=== PATIENT | male | born 1970 | race Caucasian/White ===

== ENCOUNTER 2017-05-07 19:22 | Outpatient (CLI) | payer OTHER | END 2017-05-07 19:23 | disposition short-term general hospital (02) | LOC: EMS 19:22 | PROVIDERS: ATTEND Surgery | DX: S89.91XA Unspecified injury of right lower leg, initial encounter (principal); S09.90XA Unspecified injury of head, initial encounter; S69.92XA Unspecified injury of left wrist, hand and finger(s), initial encounter; S69.91XA Unspecified injury of right wrist, hand and finger(s), initial encounter; V29.40XA Motorcycle driver injured in collision with unspecified motor vehicles in traffic accident, initial encounter; Y92.413 State road as the place of occurrence of the external cause | CPT/HCPCS: A0425; A0427 ==

== ENCOUNTER 2021-12-17 17:04 | Emergency (ER) | payer MEDICAID, OTHER ==
--- NOTE | 2021-12-17 17:36 | ED Physician Documentation ---
PD HPI LOWER EXT INJURY - Stated complaint Stated Complaint: L FOOT PX/INJ - Chief complaint Chief Complaint: Ext Problem - History obtained from History obtained from: Patient - History of Present Illness PD HPI LOW EXT INJURY LOCATION: Left, Foot Type of injury: Puncture wound (stepped on nail 8 days ago with swelling and redness starting next day. REdness has stayed stagnant until yesterday when started to increase and the foot become more tender. HAd seen [employer] for it and was getting natural treatments, but then started on AUgmentin yesterday when got more red.) Where injury occurred: Home Timing - onset: How many days ago (8) Timing - duration: Days (8) Timing - details: Gradual onset, Still present (red after the injury next day but staying mild with soaks and topical treatment until worse the past 2 days, despite starting Augmentin yesterday. Area with swelling and white lump developing.) Worsened by: Palpating, Other (walking on it) Associated symptoms: Swelling, Discolored. No: Weakness, Numbness Similar symptoms before: Has not had sx before Review of Systems Constitutional: denies: Fever, Chills Neurologic: denies: Focal weakness, Numbness PD PAST MEDICAL HISTORY - Past Medical History Cardiovascular: High cholesterol Endocrine/Autoimmune: Type 1 diabetes - Present Medications Home Medications: Ambulatory Orders Medication Instructions Recorded Confirmed Insulin Glargine [Lantus Solostar] 12 - 14 unit SUBQ BID 12/06/15 12/06/15 Insulin Lispro [Humalog Kwikpen 15 - 20 unit SQ TIDWM 12/06/15 12/06/15 U-100] Lovastatin 40 mg PO QPM 12/06/15 12/06/15 lisinopriL [Lisinopril] 5 mg PO DAILY 12/06/15 12/06/15 Doxycycline Hyclate 100 mg PO BID 7 Days #14 cap 12/17/21 HYDROcod/ACETAM 5/325 [Dunn 5/325] 1 ea PO Q6H PRN #14 tablet 12/17/21 Ondansetron Odt [Zofran] 4 mg TL Q6H PRN #15 tablet 12/17/21 - Allergies Allergies/Adverse Reactions: Allergies Allergy/AdvReac Type Severity Reaction Status Date / Time morphine AdvReac Nausea Verified 12/17/21 17:15 PD ED PE NORMAL - Vitals Vital signs reviewed: Yes - General General: Alert and oriented X 3, No acute distress, Well developed/nourished - Derm Derm: Normal color, Warm and dry - Extremities Extremities: Other (left plantar foot near 5th MT head with rounded area of swelling, with whitish coloring under the skin, tender with redness around. There is redness dorsal foot about 4 cm diameter area. Tender on plantar to mid foot/arch, without redness there. ) Results - Vitals Vitals: Vital Signs - 24 hr 12/17/21 12/17/21 12/17/21 17:16 19:13 19:14 Temperature 36.3 C L 36.4 C L 36.4 C L Heart Rate 99 81 81 Respiratory 16 16 16 Rate Blood Pressure 125/71 146/72 H 146/72 H O2 Saturation 96 97 97 Oxygen O2 Source Room air - Labs Labs: Microbiology 12/17/21 18:40 Wound Culture - Preliminary Foot - Left - Rads (name of study) foot xray Radiology: Prelim report reviewed (no radiopaque FB.), EMP read contemporaneously (no FB, air, fracture.), See rad report Procedures - Abscess I&D (location) left plantar Preparation: Marcaine 0.5% Incision: Incised with scalpel, Purulent drainage (2-3 good drops of pus out, cultured.), Irrigated, Culture obtained Other: Pt tolerated well, Antibiotic prescribed PD MEDICAL DECISION MAKING - ED course Complexity details: considered differential (foot infection after puncture wound, with now seems early developing abscess. Will I&D the area. Add Staph coverage for abx. Short term pain meds for pain control. ), d/w patient Departure - Departure Disposition: 01 Home, Self Care Clinical Impression: Wound infection Puncture wound of plantar aspect of foot Qualifiers: Encounter type: initial encounter Laterality: left Qualified Code(s): S91.332A - Puncture wound without foreign body, left foot, initial encounter Condition: Stable Record reviewed to determine appropriate education?: Yes Instructions: ED Wound Puncture Foot Prescriptions: Doxycycline Hyclate 100 mg PO BID 7 Days #14 cap HYDROcod/ACETAM 5/325 [Dunn 5/325] 1 ea PO Q6H PRN #14 tablet PRN Reason: Pain Ondansetron Odt [Zofran] 4 mg TL Q6H PRN #15 tablet PRN Reason: Nausea / Vomiting Comments: I did leland open the wound on your foot and got several drops of pus out. Hopefully this will promote better drainage as you soak it in warm water as you have been doing. Commonly just allowing the infection out will help resolve it quite a bit. However we would be worried about an infection in the foot for you and I would suggest adding doxycycline antibiotic for staph coverage. Use Tylenol or ibuprofen as needed for pains. I prescribed stronger pain medicine hydrocodone to use every 6 hours if needed for worse pain in the short-term. I also prescribed O dancer Moustapha to use for nausea in case to get that from the medicines. Continue soaking in water few times a day. Bandage over the wound and hopefully will drain still over the next day or 2. I would anticipate improvement over the next couple of days. We did do a culture off the drainage and that should result in a couple of days to identify the bacteria/infection better. We will call you if we need to change antibiotics. I transmitted your prescriptions to [facility] in [place]. I am prescribing a short course of narcotic pain medication for you. These are potentially dangerous and addictive medications that should be used carefully. These medications may constipate you. Take an [id number] stool softener such as docusate twice daily with plenty of water while taking these medications. If you go 24 hours without a bowel movement, take [id number] MiraLAX, per package instructions. Do not drink or drive while taking these medications. If you received narcotic or sedating medications while in the emergency de partment do not drive for 24 hours. Store this medication in a safe, secure place and out of reach of children. It is a violation of federal law to give or sell this medication to another person or to use in a manner other than prescribed. The ED will not refill narcotic prescriptions, including prescriptions lost or stolen. You can dispose of unwanted medications at the [facility] office or at several pharmacies such as [facility]. Discharge Date/Time: 12/17/21 19:15
[2021-12-17] MEDS ORDERED: oxyCODONE 5 MG TABLET PO STA (18:01)
[2021-12-17] MEDS ORDERED: ACETAMINOPHEN 325 MG TABLET PO STA (18:01)
[2021-12-17] MEDS ORDERED: ONDANSETRON ODT 4 MG TABLET TL STA (18:01)
[2021-12-17] MEDS ORDERED: DOXYCYCLINE 100 MG TABLET PO STA (18:44)
--- NOTE | 2021-12-17 18:44 | XRAY Report ---
PROCEDURE: Foot 3 View LT INDICATIONS: stepped on nail; eval for FB/fx TECHNIQUE: 3 views of the foot were acquired. COMPARISON: None FINDINGS: Bones: No fractures or dislocations. No suspicious bony lesions. Soft tissues: No tibiotalar joint effusion. Achilles tendon appears normal. Multiple small vessel calcifications are consistent with likely diabetes. No radiopaque foreign body. IMPRESSION: No evidence radiopaque foreign body. Reviewed by: Randal Gomez MD on 12/17/2021 6:43 PM PDT Approved by: Randal Gomez MD on 12/17/2021 6:43 PM PDT Station ID: [id number]
[2021-12-17 19:14] VITALS: BP 146/72
== END 2021-12-17 19:15 | disposition home or self-care (01) ==
LOC: ED 17:04
DX: S91.332A Puncture wound without foreign body, left foot, initial encounter (principal); W45.0XXA Nail entering through skin, initial encounter; E10.9 Type 1 diabetes mellitus without complications; Z79.4 Long term (current) use of insulin
CPT/HCPCS: 10060; 73630; 87070; 87205; 99283; A9270; Q0162

== ENCOUNTER 2022-10-21 07:59 | Outpatient (CLI) | payer MEDICAID ==
[2022-10-21 14:53] LABS: BASOPHILS # (AUTO) 0.1 10^3/uL (0.0-0.1); BASOPHILS % (AUTO) 2.6 %; EOSINOPHILS # (AUTO) 0.3 10^3/uL (0.0-0.7); EOSINOPHILS % (AUTO) 6.8 %; HGB - HEMOGLOBIN 15.1 g/dL (14.0-18.0); LYMPHOCYTES # (AUTO) 1.5 10^3/uL (1.5-3.5); LYMPHOCYTES % (AUTO) 29.8 %; MEAN CORPUSCULAR HEMOGLOBIN 31.8 pg (27.0-31.0); MEAN CORPUSCULAR HGB CONC 32.8 g/dL (32.0-36.0); MEAN CORPUSCULAR VOLUME 96.8 fL (80.0-94.0); MEAN PLATELET VOLUME 10.2 fL (7.4-11.4); MONOCYTES # (AUTO) 0.3 10^3/uL (0.0-1.0); MONOCYTES % (AUTO) 5.8 %; NEUTROPHILS # (AUTO) 2.8 10^3/uL (1.5-6.6); NEUTROPHILS % (AUTO) 54.8 %; PLT - PLATELET COUNT 334 10^3/uL (130-450); RED BLOOD COUNT 4.75 10^6/uL (4.70-6.10); RED CELL DISTRIBUTION WIDTH 12.3 % (12.0-15.0)
[2022-10-21 15:23] LABS: ALBUMIN 4.1 g/dL (3.2-5.5); ALBUMIN/GLOBULIN RATIO 1.2 (1.0-2.2); ALKALINE PHOSPHATASE 131 IU/L (42-121); ALT ALANINE AMINOTRANSFERASE 29 IU/L (10-60); AST ASPARTATE AMINOTRANSFERASE 23 IU/L (10-42); BILIRUBIN,TOTAL 0.7 mg/dL (0.2-1.0); BUN - BLOOD UREA NITROGEN 12 mg/dL (6-20); CALCIUM 9.9 mg/dL (8.5-10.3); CARBON DIOXIDE - CO2 31 mmol/L (21-32); CHLORIDE 101 mmol/L (101-111); CHOL/HDL RATIO 2.9 (<5.0); CHOLESTEROL 263 mg/dL; CREATININE 0.7 mg/dL (0.6-1.2); GFR - MDRD 119 (>89); GLUCOSE 154 mg/dL (70-100); HDL CHOLESTEROL 90 mg/dL; LDL CHOLESTEROL,CALCULATED 148 mg/dL; LDL/HDL RATIO 1.6 (<3.6); POTASSIUM 4.4 mmol/L (3.5-5.0); SODIUM 142 mmol/L (135-145); TOTAL PROTEIN 7.4 g/dL (6.7-8.2); TRIGLYCERIDES 123 mg/dL; VLDL CHOLESTEROL 25 mg/dL
[2022-10-21 15:37] LABS: CRP - C-REACTIVE PROTEIN < 1.0 mg/dL (0-1.0)
[2022-10-21 15:52] LABS: THYROID STIMULATING HORMONE 2.77 uIU/mL (0.34-5.60)
[2022-10-21 15:56] LABS: CREATININE,URINE 127.2 mg/dL; MICROALBUM/CREATININE RATIO,UR 27.5 ug/mg (<30.0); MICROALBUMIN,URINE 3.5 mg/dL (0-300.0)
[2022-10-21 20:56] LABS: ESTIMATED AVERAGE GLUCOSE 258 mg/dL (70-100); HEMOGLOBIN A1c% 10.6 % (4.27-6.07)
== END 2022-10-21 12:59 | disposition home or self-care (01) ==
LOC: LAB.S 07:59
PROVIDERS: ATTEND Internal Medicine
DX: E10.9 Type 1 diabetes mellitus without complications (principal); K90.49 Malabsorption due to intolerance, not elsewhere classified; S06.2X Diffuse traumatic brain injury
CPT/HCPCS: 36415; 80053; 80061; 82043; 82570; 82607; 83036; 83721; 84443; 85025; 85651; 86140

== ENCOUNTER 2023-06-08 08:20 | Outpatient (CLI) | payer MEDICAID ==
[2023-06-08 15:15] LABS: ALBUMIN 4.3 g/dL (3.2-5.5); ALBUMIN/GLOBULIN RATIO 1.7 (1.0-2.2); BILIRUBIN,TOTAL 0.6 mg/dL (0.2-1.0); CALCIUM 9.4 mg/dL (8.5-10.3); CREATININE 0.8 mg/dL (0.6-1.3); POTASSIUM 4.1 mmol/L (3.5-4.5); TOTAL PROTEIN 6.8 g/dL (6.4-8.9)
[2023-06-08 22:18] LABS: ESTIMATED AVERAGE GLUCOSE 223 mg/dL (70-100); HEMOGLOBIN A1c% 9.4 % (4.27-6.07)
== END 2023-06-08 08:21 | disposition home or self-care (01) ==
LOC: LAB.S 08:20
PROVIDERS: ATTEND Internal Medicine
DX: E10.9 Type 1 diabetes mellitus without complications (principal)
CPT/HCPCS: 36415; 80053; 83036

== ENCOUNTER 2023-06-18 09:12 | Outpatient (CLI) | payer MEDICAID | END 2023-06-18 09:13 | disposition home or self-care (01) | LOC: LAB.S 09:12 | PROVIDERS: ATTEND Internal Medicine | DX: E29.1 Testicular hypofunction (principal) | CPT/HCPCS: 36415; 84403 ==

== ENCOUNTER 2023-06-19 08:09 | Outpatient (CLI) | payer MEDICAID | END 2023-06-19 08:10 | disposition home or self-care (01) | LOC: LAB.S 08:09 | PROVIDERS: ATTEND Internal Medicine | DX: E29.1 Testicular hypofunction (principal) | CPT/HCPCS: 36415; 84403 ==

== ENCOUNTER 2024-02-12 07:27 | Outpatient (CLI) | payer MEDICAID ==
[2024-02-12 15:47] LABS: BASOPHILS # (AUTO) 0.1 10^3/uL (0.0-0.1); BASOPHILS % (AUTO) 2.6 %; EOSINOPHILS # (AUTO) 0.2 10^3/uL (0.0-0.7); EOSINOPHILS % (AUTO) 4.3 %; HCT - HEMATOCRIT 43.6 % (42.0-52.0); HGB - HEMOGLOBIN 14.7 g/dL (14.0-18.0); LYMPHOCYTES # (AUTO) 1.3 10^3/uL (1.5-3.5); MEAN CORPUSCULAR HEMOGLOBIN 32.3 pg (27.0-31.0); MEAN CORPUSCULAR HGB CONC 33.7 g/dL (32.0-36.0); MEAN CORPUSCULAR VOLUME 95.8 fL (80.0-94.0); MEAN PLATELET VOLUME 10.1 fL (7.4-11.4); MONOCYTES # (AUTO) 0.3 10^3/uL (0.0-1.0); MONOCYTES % (AUTO) 8.3 %; NEUTROPHILS # (AUTO) 1.7 10^3/uL (1.5-6.6); NEUTROPHILS % (AUTO) 47.8 %; PLT - PLATELET COUNT 282 10^3/uL (130-450); RED BLOOD COUNT 4.55 10^6/uL (4.70-6.10); RED CELL DISTRIBUTION WIDTH 11.9 % (12.0-15.0); WHITE BLOOD COUNT 3.5 x10^3/uL (4.8-10.8)
[2024-02-12 15:59] LABS: ALBUMIN 4.2 g/dL (3.2-5.5); ALBUMIN/GLOBULIN RATIO 1.7 (1.0-2.2); ALKALINE PHOSPHATASE 106 IU/L (42-121); ALT ALANINE AMINOTRANSFERASE 19 IU/L (10-60); AST ASPARTATE AMINOTRANSFERASE 20 IU/L (10-42); BILIRUBIN,TOTAL 0.7 mg/dL (0.2-1.0); BUN - BLOOD UREA NITROGEN 20 mg/dL (6-20); CALCIUM 9.2 mg/dL (8.5-10.3); CARBON DIOXIDE - CO2 30 mmol/L (21-32); CHLORIDE 104 mmol/L (101-111); CHOL/HDL RATIO 2.7 (<5.0); CHOLESTEROL 221 mg/dL; CREATININE 0.8 mg/dL (0.6-1.3); GFR - MDRD 102 (>89); GLUCOSE 210 mg/dL (74-104); HDL CHOLESTEROL 82 mg/dL; LDL CHOLESTEROL,CALCULATED 117 mg/dL; LDL/HDL RATIO 1.4 (<3.6); POTASSIUM 4.2 mmol/L (3.5-4.5); SODIUM 138 mmol/L (135-145); TOTAL PROTEIN 6.7 g/dL (6.4-8.9); TRIGLYCERIDES 108 mg/dL (48-352); VLDL CHOLESTEROL 22 mg/dL
[2024-02-12 20:48] LABS: ESTIMATED AVERAGE GLUCOSE 206 mg/dL (70-100); HEMOGLOBIN A1c% 8.8 % (4.27-6.07)
== END 2024-02-12 07:28 | disposition home or self-care (01) ==
LOC: LAB.S 07:27
PROVIDERS: ATTEND Internal Medicine
DX: E10.9 Type 1 diabetes mellitus without complications (principal); Z13.220 Encounter for screening for lipoid disorders
CPT/HCPCS: 36415; 80053; 80061; 83036; 83721; 85025